=== PATIENT | female | born 1960 | race African-American/Black ===

== ENCOUNTER 2018-09-06 05:52 | Emergency (ER) | payer MEDICAID, OTHER ==
[~2018-09-06] VITALS: Ht 157.5 cm; Wt 62.7 kg
[~2018-09-06 05:52] MED LIST: GABA-529 PO; HYDR-4069 PO; METF-444 PO
[2018-09-06 06:04] LABS: GLUCOSE,POINT OF CARE 458 MG/DL (70-110)
[2018-09-06] MEDS ORDERED: DULA1.5P IM (06:08)
[2018-09-06 08:03] VITALS: BP 141/85
== END 2018-09-06 08:13 | disposition home or self-care (01) ==
LOC: EMS 05:52
DX: E11.40 Type 2 diabetes mellitus with diabetic neuropathy, unspecified (principal); Z76.0 Encounter for issue of repeat prescription; F17.210 Nicotine dependence, cigarettes, uncomplicated; Z90.710 Acquired absence of both cervix and uterus; Z79.84 Long term (current) use of oral hypoglycemic drugs; Z79.899 Other long term (current) drug therapy

== ENCOUNTER 2019-03-07 10:25 | Emergency (ER) | payer OTHER ==
[~2019-03-07] VITALS: Ht 157.5 cm; Wt 58.2 kg
[~2019-03-07 10:25] MED LIST changes: +DULA1.5P IM
[2019-03-07 10:39] LABS: GLUCOSE,POINT OF CARE 457 MG/DL (70-110)
[2019-03-07] MEDS ORDERED: ACAR50TA11 PO (10:43)
[2019-03-07] MEDS ORDERED: SODIUM CHLORIDE 0.9% 1,000 ML IV ONE (11:15)
[2019-03-07 11:29] LABS: BASOPHILS % (AUTO) 0.6 % (0.0-2.0); EOSINOPHILS % (AUTO) 0.5 % (1.0-6.0); HEMATOCRIT 44.5 % (36-46); HEMOGLOBIN 14.9 g/dL (12.0-16.0); LYMPHOCYTES # (AUTO) 1.9 K/uL (1.0-4.8); MEAN CORPUSCULAR HEMOGLOBIN 32.3 pg (26.0-34.0); MEAN CORPUSCULAR HGB CONC 33.4 G/dL (31.0-37.0); MEAN CORPUSCULAR VOLUME 97 fL (80-100); MONOCYTES # (AUTO) 0.3 K/uL (0.1-1.0); MONOCYTES % (AUTO) 5.2 % (2.0-9.0); NEUTROPHILS # (AUTO) 4.2 K/uL (1.8-7.7); NEUTROPHILS % (AUTO) 64.7 % (40.0-70.0); PLATELET COUNT (AUTO) 235 K/uL (150-450); RED BLOOD CELL COUNT(AUTO) 4.61 MIL/uL (4.00-5.20)
[2019-03-07 11:36] LABS: ANION GAP 8 mmol/L (8-16); CARBON DIOXIDE 28 mmol/L (22-29); CHLORIDE 100 mmol/L (98-107); CREATININE 0.93 mg/dL (0.60-1.30); GLOMERULAR FILTR. RATE CALC > 60 mL/min (>60); GLUCOSE,RANDOM 390 mg/dL (70-110); POTASSIUM 4.1 mmol/L (3.5-5.1); SODIUM SERUM 136 mmol/L (136-145); UREA NITROGEN, BLOOD 12 mg/dL (7-18)
[2019-03-07 11:42] LABS: ALANINE AMINOTRANSFERASE 27 U/L (12-78); ALBUMIN 3.7 g/dL (3.4-5.0); ALKALINE PHOSPHATASE 132 U/L (46-116); ASPARTATE AMINOTRANSFERASE 18 U/L (15-37); BILIRUBIN,TOTAL 0.4 mg/dL (0.1-1.0); TOTAL PROTEIN, SERUM 7.7 g/dL (6.4-8.2)
[2019-03-07] MEDS ORDERED: INSULIN REGULAR, HUMAN 100 UNITS/ML SQ ONE (11:45)
[2019-03-07] MEDS ORDERED: GABAPENTIN 100 MG CAPSULE PO ONE (11:45)
[2019-03-07] MEDS ORDERED: MetFORMIN HCL 500 MG TABLET PO ONE (11:45)
[2019-03-07 12:09] LABS: APPEARANCE,URINE CLEAR (CLEAR); BILIRUBIN,URINE NEGATIVE (NEGATIVE); GLUCOSE, URINE (UA) >=1000 mg/dL (NEGATIVE); KETONES,URINE NEGATIVE (NEGATIVE); LEUKOCYTE ESTERASE ,URINE NEGATIVE (NEGATIVE); NITRATE,URINE NEGATIVE (NEGATIVE); OCCULT BLOOD,URINE NEGATIVE (NEGATIVE); PH,URINE 6.5 (5.0-8.0); PROTEIN,URINE NEGATIVE (NEGATIVE); UROBILINOGEN,URINE 0.2 mg/dL (<=1.0)
[2019-03-07 12:33] LABS: BACTERIA,URINE None Seen /HPF (None Seen); RBC,URINE None Seen /HPF (0-2); SQUAMOUS EPITHELIAL CELL,UR Moderate /LPF (None Seen)
[2019-03-07 12:56] VITALS: BP 132/75
[2019-03-07 12:58] LABS: GLUCOSE,POINT OF CARE 296 MG/DL (70-110)
== END 2019-03-07 13:11 | disposition home or self-care (01) ==
LOC: EMS 10:28
DX: E11.40 Type 2 diabetes mellitus with diabetic neuropathy, unspecified (principal); E11.65 Type 2 diabetes mellitus with hyperglycemia; F17.210 Nicotine dependence, cigarettes, uncomplicated; Z76.0 Encounter for issue of repeat prescription; Z90.710 Acquired absence of both cervix and uterus; Z79.899 Other long term (current) drug therapy
CPT/HCPCS: 36415; 80053; 81001; 82962; 85025; 96372; 99283; J1815; 82948